=== PATIENT | female | born 1995 | race Two or more races ===

== ENCOUNTER 2025-05-27 05:43 | Inpatient (IN) | payer MEDICAID, SELFPAY ==
--- NOTE | 2025-05-15 14:46 | ESHP_ITS ---
RE: RENAY MORALES : 1995 DATE OF ADMISSION: 05/27/2025 HISTORY OF PRESENT ILLNESS: This is a 30-year-old G3, P1-0-1-1 with due date of 06/03/2024 with intrauterine at 39 weeks on 05/27/2024, who presents for repeat delivery. She reports occasional contraction. She denies any leaking or bleeding. She reports normal movement. ALLERGIES: NO KNOWN DRUG ALLERGIES. MEDICATIONS: multivitamin 1 p.o. daily. SOCIAL HISTORY: Marijuana use. PAST MEDICAL HISTORY: Influenza on 12/19/2024. pounds 1 ounce male, complicated by gestational hypertension. PAST SURGICAL HISTORY: delivery in 2022. REVIEW OF SYSTEMS: She denies any chest pain, palpitations, cough, fever, or shortness of breath or lower extremity pain. PHYSICAL EXAMINATION: VITAL SIGNS: Blood pressure is 125/74, heart rate 88, respirations 18, temperature 98.6. HEENT: Oropharynx and sclerae are clear. LUNGS: Clear to auscultation bilaterally. HEART: Regular rate and rhythm. ABDOMEN: Gravid term size. Old Pfannenstiel scar noted. EXTREMITIES: Nontender. SKIN: No gross rashes or lesions. NEUROLOGIC: No focal deficit. ASSESSMENT AND PLAN: Intrauterine at 39 weeks on 05/27/2024. Previous delivery, elects to repeat delivery. PLAN: Repeat delivery. Informed consent was obtained. The patient was made aware of the risks, complications, alternatives, benefits of the proposed procedure and she agrees. DT: 12:44:11 TT: 14:44:00 Ref: [id number] - TID: [id number] [facility]
[2025-05-26 11:46] LABS: Basophils # (Auto) 0.1 Thou/mm3 (0.0-0.2); Basophils % (Auto) 0 % (0-2.5); Eosinophils # (Auto) 0.2 Thou/mm3 (0.0-0.5); Eosinophils % (Auto) 2 % (0-10); Hematocrit 37.7 % (36.0-46.0); Hemoglobin 12.7 g/dL (12.0-16.0); Immature Granulocytes Auto 0.11 Thou/mm3 (0.00-0.00); Lymphocytes # (Auto) 3.3 Thou/mm3 (1.0-4.8); Lymphocytes % (Auto) 25 % (10-50); Mean Corpuscular HGB Conc 33.7 g/dl (31.0-37.0); Mean Corpuscular Hemoglobin 29.5 pg (25.0-35.0); Mean Corpuscular Volume 88 fL (80-100); Monocytes # (Auto) 0.9 Thou/mm3 (0.0-0.8); Monocytes % (Auto) 7 % (0-12); Neutrophils # (Auto) 8.8 Thou/mm3 (1.8-7.7); Neutrophils % (Auto) 66 % (37-80); Nucleated Red Blood Cell # 0.00 Thou/mm3 (0.00-0.00); Nucleated Red Blood Cell % 0 /100 WBC (0); Platelet Count 262 Thou/mm3 (140-440); RDW Standard Deviation 42.6 fL (36.4-46.3); Red Blood Count 4.31 Miln/mm3 (4.00-5.20); White Blood Count 13.5 Thou/mm3 (3.6-11.0)
[2025-05-26 12:12] LABS: Alanine Aminotransferase < 7 U/L (10-49); Albumin, Serum 3.6 gm/dL (3.5-5.0); Albumin/Globulin Ratio 1.5 (1.2-2.2); Alkaline Phosphatase 145 U/L (46-116); Anion Gap 13 (7-16); Aspartate Amino Transferase 16 U/L (0-34); BUN/Creatinine Ratio 15 Ratio (12-20); Bilirubin,Total 0.2 mg/dL (0.3-1.2); Blood Urea Nitrogen 9 mg/dL (9-23); Calcium 9.6 mg/dL (8.3-10.6); Calcium (Corrected) 9.9 mg/dL (8.5-10.1); Carbon Dioxide 20.4 mMol/L (20.0-31.0); Chloride 105 mMol/L (98-107); Creatinine (Component) 0.6 mg/dL (0.6-1.3); Globulin 2.4 gm/dL (2.3-3.5); Glucose 140 mg/dL (74-106); Osmolality,Calculated 276 (275-295); Potassium 4.0 mMol/L (3.4-5.1); Sodium 138 mMol/L (136-145); Total Protein 6.0 gm/dL (5.7-8.2); eGFR > 60 See Note
[2025-05-26 12:22] LABS: Syphilis Nonreactive (Nonreactive)
[2025-05-26 12:33] LABS: INR 0.9 (0.9-1.3); Partial Thromboplastin Time 28.4 Seconds (22.0-36.0); Prothrombin Time 10.1 Seconds (9.0-12.2)
[2025-05-27] VITALS (17 sets, daily range): BP systolic 94–120; BP diastolic 54–94; PULSE 72–121; RESP 14–20; TEMP 36.4–36.9; O2SAT 96–100; BMI 33.0
[2025-05-27] MEDS: FAMOTIDINE INJ 10 MG/ML VIAL 2 ML 20 MG IV (07:18)
[2025-05-27] MEDS: ceFAZolin/D5W 2 GM IV 2 GM/100 ML BAG IV (07:18)
--- NOTE | 2025-05-27 07:24 | PD.LDDS ---
DS: Providers Provider Date of admission: 05/27/25 05:43 Primary care physician: William Ramos MD Admitting Provider: Norbert Carnes MD Attending Provider on Admission: Norbert Carnes MD Attending Provider on DC: Norbert Carnes MD Discharging Provider: Norbert Carnes MD DS: Diagnosis Discharge Diagnosis (1) delivery delivered: Status: Acute Problem List Completed Was Problem List Reviewed/Reconciled?: Yes Summary/Hosp Course Peripartum Data Procedures: Procedures Operation Date: 05/27/25 07:45 <No data on this case meets the specified criteria> Time Spent with Patient Time attestation: Total time spent providing and/or coordinating discharge services: Exam Vital Signs Temp Pulse Resp BP Pulse Ox O2 Del Method 98.2 F 113 H 18 120/94 H 99 Room Air 05/27/25 05:58 05/27/25 06:26 05/27/25 05:58 05/27/25 06:26 05/27/25 05:58 05/27/25 05:58 Discharge Plan Plan Patient Disposition: HOME (Self Care) Patient condition on transfer: Stable Prescriptions/Referrals Prescriptions/Med Rec: New ibuprofen 600 mg tablet 600 mg PO Q6H PRN (Reason: pain) Qty: 30 0RF vits A and D-white pet-lanolin [A and D (lanolin-petrolatum)] Ointment 1 applic topical QDAY PRN (Reason: skin irritation) Qty: 15 0RF Discontinued hydrocodone-acetaminophen [[place]] 5-325 mg tablet 1 tab PO BID MDD 3 tabs PRN (Reason: pain) Qty: 10 0RF ibuprofen 600 mg tablet 600 mg PO Q8H PRN (Reason: fever or pain) Qty: 30 0RF Referrals: William Ramos MD [Primary Care Provider] - Patient/Caregiver Discharge Instructions Discharge Activity: activity as tolerated Other Discharge Activity Instructions:: Follow up with Dr Carnes in 1 week. Already has a Rx for [place]. Education Materials: C Section Dc Print Language: Kazakh Stand Alone Forms: [facility]en Award Info., Patient Portal Info Letter Discharge Order Discharge Orders: Discharge (Routine); Ordered 05/29/25 Ordered By: Norbert Carnes Planned Discharge Date 05/29/25
[2025-05-27] MEDS: METOCLOPRAMIDE INJ 5 MG/ML VIAL 2 ML 10 MG IVP (07:25)
--- NOTE | 2025-05-27 07:25 | ESOP_ITS ---
Operative Note - INVESTIGATIVE AGENT Procedure Date of procedure: 05/27/25 Procedure Performed: Repeat low transverse C/S via Pfanensteil skin incision. Indication: IUP 39w0d Prior C/S Elects repeat C/S Pre-Op diagnosis: IUP 39w0d Prior C/S Elects repeat C/S Post-Op diagnosis: IUP 39w0d Prior C/S Elects repeat C/S Anesthesia type: Spinal Procedure description: After proper informed consent was obtained and the patient was made aware of the risks, complications, alternatives and benefits of the proposed procedure she was taken to the operating room where she underwent induction of spinal anesthesia. She was prepped and draped in the usual sterile fashion. A timeout was performed.? A Pfannenstiel skin incision was made with the scalpel and carried through to the underlying layer of fascia with the Bovie. The fascia was nicked in the midline incision and the incision was extended bilaterally with the Bovie. The inferior aspect of the fascial incision was grasped with Larisa clamps elevated and the underlying rectus muscle dissected off with the Bovie. The superior aspect the fascial incision was grasped with Larisa clamps elevated and the underlying rectus muscle dissected off with the Bovie. The rectus muscles were in the midline. The peritoneum was grasped between 2 Moyer clamps and entered sharply with the Metzenbaum scissors. The peritoneum was extended superiorly and inferiorly with good visualization of the bladder. The vesicouterine peritoneum was incised transversely and the bladder flap created digitally. A Cesar blade was inserted. A low transverse incision was made in the uterus with a scapel and the incision was extended digitally. The 's head delivered and the mouth and nose were suctioned with the bulb suction. The shoulder and body delivered atraumatically. The cord was clamped after 30 second delayed cord clamping and the cord was cut.? The male infant was handed off to the waiting Pediatric staff, cord blood was collected for lab testing. The placenta was removed complete and intact. The uterus was exteriorized and cleared of all clots and debris. The uterine incision was closed with #1-0 chromic catgut suture in a running interlocking fashion. A second layer of the same suture was used to imbricate the first layer and obtain excellent hemostasis. The vesicouterine peritoneum was closed with 2-0 chromic catgut suture in a running fashion. The firm uterus was returned to the abdomen. The gutters were cleared of all clots and debris. The peritoneum was closed with 0 chromic catgut suture in running fashion. The rectus muscle was closed with 0 chromic catgut suture. The fascia was closed with 0 Vicryl beginning at each angle and ending in the center in a running fashion. The subcutaneous tissue was irrigated with warmed normal saline solution and found to be hemostatic. The subcutaneous tissue was closed with 2-0 chromic catgut suture in a running fashion. The skin was closed with 4-0 Monocryl. A Dermabond Prineo dressing was applied and a sterile pressure dressing was applied.? She tolerated the procedure well. Counts were correct. I discussed with the patient the nature of her condition, intraoperative findings and expectation for recovery all? questions answered. Specimen: none Estimated blood loss (ml): 500 Findings: Live male infant APGARS 8 and 9. Uterus, ovaries and tubes wnl Placenta removed complete intact. Complications: none Surgical staff Edil Fox [employer] SALES REPRESENTATIVE Operation Date: 05/27/25 07:45 <No data on this case meets the specified criteria> Diagnosis Discharge Diagnosis (1) delivery delivered: Status: Acute Problem List Completed Was Problem List Reviewed/Reconciled?: Yes
[2025-05-27 08:28] LABS: Amphetamine/Metham Scrn,Ur OB Negative (Negative); Benzoylecgonine Screen, Ur OB Negative (Negative); Opiate Screen,Urine OB Negative (Negative); THC Screen,Urine OB Negative (Negative)
[2025-05-27] MEDS: OXYTOCIN in NS 20 units 20 UNIT/1,000 ML BAG 125 UNIT IV ×2 (09:03→17:09)
--- NOTE | 2025-05-27 12:33 | OBDSUM_ITS ---
Data ([place]) Data Hx Section: Yes : 3 Delivery Data ([place]) Labor Data Induction/Augmentation Agent: Artificial ROM ROM date: 05/27/25 ROM time: 08:04 Amniotic membrane rupture type: Artificial Amniotic fluid description: Clear Delivery Data EDC: 06/03/25 EDC calculated by:: LMP/early US confirmation Onset of labor date: 05/27/25 Onset of labor time: 08:04 Complete dilation date: 05/27/25 Complete dilation time: 08:04 [place] delivery date: 05/27/25 delivery time: 08:04 Gestational age (weeks): 39 Gestational age (days): 0 Placenta delivery date: 05/27/25 Placenta delivery time: 08:04 Stage 1 total time: Labor - Stage 1 Duration 0 minutes Delivered by: Norbert Carnes Delivery nurse: Otilia ZURITA Neworn nurse: Hima Esparza RN Carbon Dioxide Operator at delivery: Yes (Eric) Support person(s) at delivery: father of baby Other staff at delivery: James Estrada RN Delivery Method Delivery method: Low Transverse Presentation: Vertex position: OA Anesthesia Type Anesthesia Type: Spinal Anesthesia type: Spinal Placenta Placenta delivery description: Manual Removal Cord blood sent to lab: Yes cord blood collection: Cord Blood Type Episiotomy Episiotomy description: None EBL Estimated blood loss (ml): 500 Umbilical Cord cord description: 3 Vessels and Nuchal Cord Complications Complications: None [place] Data ([place]) [place] Data order: 1 's gender: Male Identification band number: [id number] weight (gms): 6 lb 12.291 oz Weight (pounds): 6 lbs and 12.3 ozs 1 minute: 8 5 minutes: 9
[2025-05-27] MEDS: ONDANSETRON INJ 2 MG/ML INJ 2 ML 4 MG IVP (12:37)
[2025-05-27 13:53] LABS: Basophils # (Auto) 0.1 Thou/mm3 (0.0-0.2); Basophils % (Auto) 0 % (0-2.5); Eosinophils # (Auto) 0.2 Thou/mm3 (0.0-0.5); Eosinophils % (Auto) 1 % (0-10); Hematocrit 34.6 % (36.0-46.0); Hemoglobin 11.5 g/dL (12.0-16.0); Immature Granulocytes Auto 0.16 Thou/mm3 (0.00-0.00); Lymphocytes # (Auto) 2.8 Thou/mm3 (1.0-4.8); Lymphocytes % (Auto) 14 % (10-50); Mean Corpuscular HGB Conc 33.2 g/dl (31.0-37.0); Mean Corpuscular Hemoglobin 29.0 pg (25.0-35.0); Mean Corpuscular Volume 87 fL (80-100); Monocytes # (Auto) 1.1 Thou/mm3 (0.0-0.8); Monocytes % (Auto) 6 % (0-12); Neutrophils # (Auto) 15.6 Thou/mm3 (1.8-7.7); Neutrophils % (Auto) 78 % (37-80); Nucleated Red Blood Cell # 0.00 Thou/mm3 (0.00-0.00); Nucleated Red Blood Cell % 0 /100 WBC (0); Platelet Count 228 Thou/mm3 (140-440); RDW Standard Deviation 42.9 fL (36.4-46.3); Red Blood Count 3.97 Miln/mm3 (4.00-5.20); White Blood Count 19.9 Thou/mm3 (3.6-11.0)
[2025-05-27] MEDS: KETOROLAC INJ 30 MG/ML VIAL IVP (17:17)
[2025-05-28] MEDS: RINGERS LACTATED 1000 ML 1,000 ML 100 ML IV (00:29)
[2025-05-28] MEDS: KETOROLAC INJ 30 MG/ML VIAL IVP ×2 (01:01→08:37)
[2025-05-28 04:40] VITALS: BP 132/82; PULSE 95; RESP 18; TEMP 36.7; O2SAT 95
--- NOTE | 2025-05-28 07:46 | ESPR_ITS ---
Subjective Subjective Interval history: Delivery type: Patient doing well this morning. No acute complaints. Ambulating, tolerating p.o. and voiding without difficulty. HTN/Pre-Eclampsia screen: No chest pain, shortness of breath, headache, visual changes, epigastric or right upper quadrant pain. Breast-feeding, lochia diminishing. Bowel: Flatus+/ Exam Vital Signs Temp Pulse Resp BP Pulse Ox O2 Del Method 98.1 F 95 18 132/82 H 95 Room Air 05/28/25 04:40 05/28/25 04:40 05/28/25 04:40 05/28/25 04:40 05/28/25 04:40 05/28/25 04:40 Constitutional Constitutional: no acute distress Routine HEENT Exam Head: Present normocephalic and atraumatic Eye: Present EOMI and PERRL ENT: Present mucous membranes moist Routine Neck Exam Neck: Present supple and trachea midline Routine Respiratory Exam Respiratory: Present chest non-tender, lungs clear, normal breath sounds and no resp distress Routine Cardiovascular Exam Cardiovascular: Present RRR Routine Abdominal Exam Abdominal: Present soft and normoactive bowel sounds Routine Extremities Exam Extremities: Present full ROM Routine Skin Exam Skin: Present intact, dry and warm Routine Neurological Exam Neurological: Present alert, oriented X3 and CN II-XII intact Routine Psychiatric Exam Psychiatric: Present normal affect and normal thought process Objective Labs 05/27/25 12:56 05/26/25 10:50 Labs: Laboratory Results - last 24 hr 05/27/25 05/27/25 06:07 12:56 WBC 19.9 H D RBC 3.97 L Hgb 11.5 L Hct 34.6 L MCV 87 MCH 29.0 MCHC 33.2 RDW Std Deviation 42.9 Plt Count 228 D Neut % (Auto) 78 Lymph % (Auto) 14 [place] % (Auto) 6 Eos % (Auto) 1 Baso % (Auto) 0 Neut # (Auto) 15.6 H Lymph # (Auto) 2.8 [place] # (Auto) 1.1 H Eos # (Auto) 0.2 Baso # (Auto) 0.1 Immature Gran # (Auto) 0.16 H Absolute Nucleated RBC 0.00 Immature Gran % 1 H Nucleated RBC % 0 Urine Opiates Screen Negative U Amphetamin/Meth Scrn Negative U Cocaine Metab Screen Negative U Marijuana (THC) Screen Negative Assessment & Plan Problem List (1) delivery delivered: Status: Acute Assessment and plan: 1. Continue routine /post-op care 2. Labs reviewed, cbc appropriate 3. Remove dressing/[place] 4. Encourage to ambulate, shower 5. Encourage PO intake, breast feeding Time Spent With Patient Time: Total time spent is greater than 50% in coordination of care (as documented) at patient's floor/unit and/or counseling patient:
[2025-05-28 08:35] VITALS: BP 122/83; PULSE 100; RESP 18; TEMP 37.2; O2SAT 98
[2025-05-28] MEDS: ENOXAPARIN SOD INJ 40 MG/0.4 ML SYRINGE SC (08:37)
[2025-05-28] MEDS: DOCUSATE SOD 100 MG CAPSULE PO (08:37)
--- NOTE | 2025-05-28 09:19 | PC.SS ---
STAGE SETTINGS PAINTER conducted bedside contact with patient to address nursing referral indicating patient possessed history of THC use and LTC. STAGE SETTINGS PAINTER introduced self and role.? At bedside with patient was Blanco AYERS. Patient confirmed past history of THC use due to pain but stated she stopped using before she got . Patient stated she would use THC for pain but no longer uses and does not plan to use. Patient stated that she is connected to [place] and food stamps. Patient stated that she had a at 39 weeks 9 days. Patient stated she has all of baby supplies, will be breast feeding and formula feeding. Patient stated she was late to care due to no available doctors in the area and [facility] rescheduling her appointments. Patient stated that she does not have cost recorder yet, STAGE SETTINGS PAINTER provided patient with list of local clinics and informed client she would need to schedule appointment within 2 days. Patient stated she plans on making appointment to [facility] as her two year old has a cost recorder there. Patient denies hx of DV and CPS. Patient confirmed past history of depression and stated she was connected at [facility] but is no longer receiving services for MH. STAGE SETTINGS PAINTER provided psychoeducation on post- symptoms and MH resources. STAGE SETTINGS PAINTER inquired if patient would like to be reconnected patient stated that she will do so on her own if she is needing services. Patient received OB services at the [facility] with Dr. Anthony. Patient stated that she has another child, boy age 2. ?FOB was in room and STAGE SETTINGS PAINTER observed appropriate interaction between MOB and infant, father was holding infant. SS has no concerns or questions at this time.
[2025-05-28] MEDS: MG HYD/AL HYD/SIME (Maalox Reg) SUSP 30 ML UDC PO (10:44)
[2025-05-28 11:20] VITALS: BP 114/74; PULSE 97; RESP 17; TEMP 36.6; O2SAT 98
[2025-05-28] MEDS: IBUPROFEN TAB 400 MG TABLET 800 MG PO (14:14)
[2025-05-28 17:00] VITALS: BP 117/86; PULSE 96; RESP 16; TEMP 36.7; O2SAT 98
[2025-05-28 20:30] VITALS: BP 125/86; PULSE 99; RESP 16; TEMP 36.7; O2SAT 98
[2025-05-28] MEDS: HYDROcodone/APAP 5/325 TABLET 1 TAB PO (20:39)
[2025-05-28] MEDS: SIMETHICONE 80 MG CHEW PO (22:30)
[2025-05-29] MEDS: IBUPROFEN TAB 400 MG TABLET 800 MG PO (00:58)
[2025-05-29 04:10] VITALS: BP 128/81; PULSE 81; RESP 16; O2SAT 99
--- NOTE | 2025-05-29 07:13 | ESPR_ITS ---
RE: RENAY MORALES : 1995 DATE OF SERVICE: 05/29/2025 Postop day number 2. The patient denies any problem or complaint. She is voiding. She is ambulating. She is tolerating diet. She is passing flatus. She denies any problems. OBJECTIVE: Vital Signs: Blood pressure 128/81, heart rate 81, respirations 16, temperature is 98.6, pulse oximetry is 99% on room air. Lungs: Clear to auscultation bilaterally. Heart: Regular rate and rhythm. Abdomen: Incision clear and intact. Extremities: Nontender. ASSESSMENT: Postoperative day number 2, status post delivery. PLAN: Discharge home. Discharge instructions given. Follow up in the office in 6 weeks. DT: 06:59:00 TT: 07:11:00 Ref: [id number] - TID: [id number]
[2025-05-29 08:00] VITALS: BP 122/80; PULSE 94; RESP 16; TEMP 36.6; O2SAT 98
[2025-05-29] MEDS: HYDROcodone/APAP 5/325 TABLET 1 TAB PO (08:03)
[2025-05-29] MEDS: DOCUSATE SOD 100 MG CAPSULE PO (08:03)
[2025-05-29] MEDS: ENOXAPARIN SOD INJ 40 MG/0.4 ML SYRINGE SC (08:03)
[2025-05-29 12:00] VITALS: BP 120/85; PULSE 96; RESP 16; TEMP 36.8; O2SAT 98
== END 2025-05-29 12:50 | disposition home or self-care (01) | DRG 540 ==
LOC: S4SX 07:23 → S4NX 07:59
PROVIDERS: Admitting Provider Specialist; PCP Family Medicine; Visit Provider Obstetrics & Gynecology
PROC: 10D00Z1 Extraction of Products of Conception, Low, Open Approach (ICD-10-PCS; CPT 59514; principal; 2025-05-27 07:30)
DX: O34.211 Maternal care for low transverse scar from previous cesarean delivery (principal); Z37.0 Single live birth; Z3A.39 39 weeks gestation of pregnancy; O69.81X0 Labor and delivery complicated by cord around neck, without compression, not applicable or unspecified
CPT/HCPCS: 36415; 80053; 80307; 85025; 85610; 85730; 86780; 86850; 86900; 86901; A4217; A4314; A4649; J0689; J1650; J1885; J2250; J2274; J2371; J2405; J2590; J2765; J3010; J3490; J7120; A9270; J2270